=== PATIENT | male | born 1995 | race Caucasian/White ===

== ENCOUNTER → 2024-10-27 | Outpatient (CLI) | payer BC, SELFPAY ==
--- NOTE | 2024-10-27 13:00 | XR_ITS ---
Examination: Retroperitoneal ultrasound, complete Technique: Multiple high resolution grayscale images of the retroperitoneum obtained, including kidneys and bladder. Exam date and time:October 27, 2024 1328 hours INDICATIONS: History kidney stones on outside ultrasound examination one year ago. FINDINGS: Right kidney 11.9 cm cortex 2.1 cm 7 mm midpole calculus Left kidney 12.4 cm cortex 2.0 cm No renal calculi No bladder mass or bladder calculi Bladder prevoid volume 697 cc postvoid volume 145 cc No prostatomegaly IMPRESSION: 7 x 7 mm nonobstructing mid pole right renal calculus
== END | disposition home or self-care (01) ==
PROVIDERS: PCP Family Medicine; Referring Provider Family Medicine; Visit Provider Family Medicine
DX: N20.0 Calculus of kidney (principal)
CPT/HCPCS: 76770

== ENCOUNTER 2025-07-21 18:26 | Emergency (ER) | payer BC, SELFPAY ==
--- NOTE | 2025-07-21 18:39 | XR_ITS ---
Examination: CT abdomen and pelvis without contrast. Coronal 3-D reconstructions. Sagittal 2-D reconstructions. Date and time of exam: July 21, 2025, 0658 hours INDICATIONS: Onset right flank pain today COMPARISON: November 23, 2013 CTDI: vol (mGy): 8.22 DLP: (mGycm): 500 Technique: Axial images of the abdomen have been obtained, 3 mm slice thickness Intravenous contrast material has not been administered. Low dose protocols were performed. One or more of the following dose reduction techniques were used; automated exposure control, adjustment of the mA and/or KV according to patient size, use of iterative reconstruction technique. Findings: No focal liver or splenic lesion No gallstones No pancreatic or adrenal mass 2 mm right renal calculus 1 mm right renal calculus Mild right hydronephrosis secondary to 2.4 mm proximal right ureteral calculus Aorta normal size No bowel obstruction Normal seminal vesicles No prostatomegaly Contracted urinary bladder Normal appendix IMPRESSION: Mild right hydronephrosis secondary to 2.5 mm proximal right ureteral calculus
[2025-07-21 18:46] VITALS: BP 154/94; PULSE 84; RESP 24; TEMP 36.5; O2SAT 96
[2025-07-21 19:20] VITALS: BP 129/82; PULSE 93; RESP 20; TEMP 36; O2SAT 96
[2025-07-21] MEDS: ONDANSETRON INJ 2 MG/ML INJ 2 ML 4 MG IVP (19:23)
[2025-07-21] MEDS: MORPHINE SULF INJ 4 MG/ML VIAL IV (19:24)
[2025-07-21] MEDS: SODIUM CHLORIDE 0.9% 1000 ML 1,000 ML 999 ML IV (19:24)
[2025-07-21] MEDS: KETOROLAC INJ 30 MG/ML VIAL IVP (19:24)
[2025-07-21 19:32] LABS: Basophils # (Auto) 0.0 Thou/mm3 (0.0-0.2); Basophils % (Auto) 0 % (0-2.5); Eosinophils # (Auto) 0.0 Thou/mm3 (0.0-0.5); Eosinophils % (Auto) 0 % (0-10); Hematocrit 43.2 % (41.0-53.0); Hemoglobin 14.4 g/dL (13.5-16.0); Immature Granulocytes Auto 0.03 Thou/mm3 (0.00-0.00); Lymphocytes # (Auto) 1.0 Thou/mm3 (1.0-4.8); Lymphocytes % (Auto) 10 % (10-50); Mean Corpuscular HGB Conc 33.3 g/dl (31.0-37.0); Mean Corpuscular Hemoglobin 26.6 pg (25.0-35.0); Mean Corpuscular Volume 80 fL (80-100); Monocytes # (Auto) 0.6 Thou/mm3 (0.0-0.8); Monocytes % (Auto) 5 % (0-12); Neutrophils # (Auto) 8.9 Thou/mm3 (1.8-7.7); Neutrophils % (Auto) 84 % (37-80); Nucleated Red Blood Cell # 0.00 Thou/mm3 (0.00-0.00); Nucleated Red Blood Cell % 0 /100 WBC (0); Platelet Count 241 Thou/mm3 (140-440); RDW Standard Deviation 36.8 fL (35.1-43.9); Red Blood Count 5.41 Miln/mm3 (4.50-5.90); White Blood Count 10.5 Thou/mm3 (3.8-10.6)
[2025-07-21 19:34] VITALS: BMI 26.4
[2025-07-21 19:52] LABS: Alanine Aminotransferase 37 U/L (10-49); Albumin, Serum 4.7 gm/dL (3.5-5.0); Albumin/Globulin Ratio 1.6 (1.2-2.2); Alkaline Phosphatase 78 U/L (46-116); Anion Gap 11 (7-16); Aspartate Amino Transferase 31 U/L (0-34); BUN/Creatinine Ratio 14 Ratio (12-20); Bilirubin,Total 0.6 mg/dL (0.3-1.2); Blood Urea Nitrogen 15 mg/dL (9-23); Calcium 9.8 mg/dL (8.3-10.6); Calcium (Corrected) 9.8 mg/dL (8.5-10.1); Carbon Dioxide 26.3 mMol/L (20.0-31.0); Chloride 105 mMol/L (98-107); Creatinine (Component) 1.1 mg/dL (0.6-1.3); Estimated Creatinine Clearance 102.7 mL/min (>60); Globulin 3.0 gm/dL (2.3-3.5); Glucose 128 mg/dL (74-106); Lipase 24 U/L (12-53); Osmolality,Calculated 285 (275-295); Potassium 3.9 mMol/L (3.4-5.1); Sodium 142 mMol/L (136-145); Total Protein 7.7 gm/dL (5.7-8.2); eGFR > 60 See Note
[2025-07-21] MEDS: TAMSULOSIN HCL 0.4 MG CAPSULE PO (19:59)
[2025-07-21 20:34] LABS: Collection Type, Urine Clean Catch
--- NOTE | 2025-07-21 20:46 | PD.EDMALE ---
ED Male Genitalurinary RME/HPI General Chief complaint: Back Pain/Injury Stated complaint: R) FLANK PAIN 05/07 Time Seen by Provider: 07/21/25 18:40 Arrival date/time: 07/21/25 18:26 This is a case of 30-year-old male with with history of kidney stone came in in the emergency room due to right flank pain for 3 days radiating to the right side of the abdomen with nausea vomiting worsening of the symptoms this patient decided to sought consult here in the emergency room patient denies any fever chills denies any urinary symptoms Limitations: no limitations Related Data Previous Rx's ?Medication ?Instructions ?Recorded hydrocodone 5 mg-acetaminophen 325 1 tab PO Q6H PRN pain #16 tabs 07/21/25 mg tablet ondansetron 4 mg disintegrating 4 mg PO Q8H #20 tabs 07/21/25 tablet tamsulosin 0.4 mg capsule 0.4 mg PO QDAY #10 caps 07/21/25 Allergies Allergy/AdvReac Type Severity Reaction Status Date / Time No Known Allergies Allergy Verified 07/21/25 18:28 Review of Systems Review of Systems Systems Reviewed: All systems reviewed, normal except as documented Past Medical History Past Medical History CARDIAC: Negative Congestive Heart Failure RESPIRATORY: Negative Chronic Obstructive Pulmonary Disease (COPD) GENITOURINARY: Positive Genitourinary Disorders and Kidney Stones; Negative Renal Disease ENDOCRINE: Negative Diabetes Mellitus Type 1 or Diabetes Mellitus Type 2 PSYCHO/SOCIAL: Positive Depression and Anxiety Social History SMOKING STATUS: Never smoker ED Exam General Limitations: Present no limitations General appearance: Present alert, in no apparent distress and other (Patient is awake alert oriented not in distress nontoxic looking well-hydrated well-nourished) Head Head exam: Present atraumatic, normocephalic and normal inspection Eye Eye exam: Present normal appearance, PERRL and EOMI ENT ENT exam: Present normal exam, normal oropharynx and mucous membranes moist Neck Neck exam: Present normal inspection, full ROM and trachea midline; Absent tenderness, meningismus, lymphadenopathy or thyromegaly Chest Chest inspection: Present normal inspection and symmetric chest wall rise; Absent tenderness Respiratory Respiratory exam: Present normal lung sounds bilaterally; Absent respiratory distress, wheezes, stridor or prolonged expiratory phase Cardiovascular Cardiovascular exam: Present regular rate, normal rhythm and normal heart sounds; Absent bradycardia, tachycardia, irregular rhythm, systolic murmur or diastolic murmur Abdominal Exam Abdominal exam: Present soft, tenderness (Mild tenderness on the right flank and right side of the abdomen), normal bowel sounds and other (No CVA tenderness bladder is not distended not tender); Absent distention, guarding, rebound, rigidity, diminished bowel sounds, hyperactive bowel sounds, hypoactive bowel sounds, organomegaly, psoas sign, obturator sign, Robledo's sign, Rovsing's sign or tenderness at McBurney's Point Extremities Exam Extremities exam: Present normal inspection and full ROM Back Exam Back exam: Present normal inspection and full ROM; Absent tenderness, CVA tenderness (R), CVA tenderness (L), muscle spasm, paraspinal tenderness, vertebral tenderness, rashes, sciatic notch tenderness (R), straight leg raise (R) or straight leg raise (L) Neurological Exam Neurological exam: Present alert, oriented X3, CN II-XII intact, normal gait and reflexes normal; Absent motor sensory deficit Psychiatric Psychiatric exam: Present normal affect and normal mood Skin Skin exam: Present warm, dry, intact, normal color and other (Excellent skin turgor excellent skin turgor) Course Quality Measures none Orders Category Date Time Status Saline [Insert IV] NOW Care 07/21/25 18:37 Active Straight [In and Out Catheter] X1 Care 07/21/25 18:[address] abdomen pelvis wo con Stat Exams 07/21/25 18:39 Completed CBC Stat Lab 07/21/25 19:22 Completed Comprehensive Metabolic Panel Stat Lab 07/21/25 19:22 Completed Lipase Stat Lab 07/21/25 19:22 Completed Urinalysis Stat Lab 07/21/25 20:30 Completed HYDROmorphone INJ [Dilaudid Inj] Med 07/21/25 20:43 Discontinued 1 mg IVP X1 ONE Ketorolac Inj [Toradol Inj] Med 07/21/25 18:37 Discontinued 30 mg IVP X1 ONE Morphine* Inj Med 07/21/25 18:37 Discontinued 4 mg IV X1 ONE Ondansetron Inj [Zofran Inj] Med 07/21/25 18:37 Discontinued 4 mg IVP X1 ONE Sodium Chloride 0.9% 1000 ml [Ns] 1,000 ml Med 07/21/25 18:37 Discontinued IV 999 mls/hr Tamsulosin HCl [Flomax] Med 07/21/25 19:51 Discontinued 0.4 mg PO X1 ONE Vital Signs Vital signs: Vital Signs Temperature 97.7 F 07/21/25 18:46 Pulse Rate 84 07/21/25 18:46 Respiratory Rate 24 H 07/21/25 18:46 Blood Pressure 154/94 H 07/21/25 18:46 Pulse Oximetry (%) 96 07/21/25 18:46 Oxygen Delivery Method Room Air 07/21/25 18:46 Oxygen saturation is 96% on room air Urogenital - Male MDM Narrative MDM Narrative:: This is a case of 30-year-old male with with history of kidney stone came in in the emergency room due to right flank pain for 3 days radiating to the right side of the abdomen with nausea vomiting worsening of the symptoms this patient decided to sought consult here in the emergency room patient denies any fever chills denies any urinary symptoms patient is awake alert oriented not in distress nontoxic looking well-hydrated well-nourished vital signs stable BP stable not tachycardic not tachypneic afebrile and nonhypoxic oxygen saturation is 96% in room air lungs sound is clear no crackles no rales no retraction no stridor heart normal rate regular rhythm no murmur abdominal exam is benign nonsurgical no guarding no rebound no rigidity with mild tenderness on the right flank and the right side of the abdomen but no CVA tenderness no bladder distention no tenderness negative psoas negative straight or negative Rovsing's negative McBurney's negative Robledo sign negative CVA tenderness blood test showed no leukocytosis no anemia kidney and liver function is normal no electrolyte lipase is normal CT scan Mild right hydronephrosis secondary to 2.5 mm proximal right ureteral calculus patient was given a bolus of normal saline morphine IV Toradol IV and Zofran patient pain improved but after 1 hour patient pain recurred thus I gave Dilaudid 1 mg IV push after 1 hour patient was reassessed patient improved and resolved abdominal exam is still benign nonsurgical no guarding no rebound no rigidity no tenderness at the time of reassessment patient was also given Flomax for kidney stone and no recurrence of vomiting at this point patient will be discharged home in stable condition urinalysis is also normal patient will follow-up with PCP for reevaluation and to be referred to urologist for further evaluation and treatment of ureteral stone for any worsening symptoms or any emergent concern return precaution in the ER is advised Patient was discharged with comfortable condition walking with stable gait. Patient verbalized no further complains explained diagnosis and answered patient question. Patient is comfortable with the proposed management plan including the need to follow up with his/her primary care physician and any specialist if applicable Discussed patient for any urgent condition or worsening sx, He/She needed to go to emergency room immediately or call 911. Patient acknowledge the responsibility to follow up as instructed and to monitor her/his symptoms. For any persistence of the symptoms for more than 3-5 days return precaution advised. Discussed the result of the test and was given printed discharge instruction Patient data External records reviewed:: [facility] previous records Clinical information provided by:: patient Social determinants that could affect healthcare access:: none Patient has the following chronic illnesses:: None How is presenting disease/condition affected by chronic disease/condition?: no chronic disease Evaluation data The following diagnostics were reviewed and interpreted by me:: lab results and radiology exam(s) Lab and/or radiology exams considered but not ordered:: Reviewed Interpretation Summary: Reviewed Medications / Prescriptions Medications or Prescriptions considered but not ordered:: Given Medication administrations:: Medication Administration History Discontinued Medications Hydromorphone HCl (Hydromorphone Inj 2 Mg/Ml Vial) 1 mg IVP X1 ONE Stop: 07/21/25 20:44 Last Admin: 07/21/25 20:54 Dose: 1 mg Documented By: CCT Sodium Chloride (Ns) 1,000 mls @ 999 mls/hr IV .Q1H1M ONE Stop: 07/21/25 19:37 Last Infusion: 07/21/25 20:09 Dose: Infused Documented By: Admin: 07/21/25 19:24 Dose: 999 mls/hr Documented By: CCT Ketorolac Tromethamine (Ketorolac Inj 30 Mg/Ml Vial) 30 mg IVP X1 ONE Stop: 07/21/25 18:38 Last Admin: 07/21/25 19:24 Dose: 30 mg Documented By: CCT Morphine Sulfate (Morphine Sulf Inj 4 Mg/Ml Vial) 4 mg IV X1 ONE Stop: 07/21/25 18:38 Last Admin: 07/21/25 19:24 Dose: 4 mg Documented By: CCT Ondansetron HCl (Ondansetron Inj 2 Mg/Ml Inj 2 Ml) 4 mg IVP X1 ONE; Protocol Stop: 07/21/25 18:38 Last Admin: 07/21/25 19:23 Dose: 4 mg Documented By: CCT Tamsulosin HCl (Tamsulosin Hcl 0.4 Mg Capsule) 0.4 mg PO X1 ONE Stop: 07/21/25 19:52 Last Admin: 07/21/25 19:59 Dose: 0.4 mg Documented By: CCT Given Consultations Consultation(s) initiated? (list below): No Diagnosis Urogenital Male Differential Diagnosis: urinary tract infection and other (Pyelonephritis nephrolithiasis ureteral stone stone) Most likely diagnosis given after review of the tests above:: Ureteral stone with hydronephrosis Admission Indicated Admission indicated?: not indicated Explain why admission is indicated or not indicated:: Not indicated Admission Request Was there a request for admission?: No Disposition Plan Disposition Plan: Discharge Discharge Attestation Discharge Attestation: The patient and all family members were given an opportunity to ask questions and understood the discharge instructions. Discharge instructions specifically effects, indications for sooner follow up or return to the emergency department, and the expected course of current diagnosis. Patient condition: Stable Discharge Plan Plan Patient Disposition: HOME (Self Care) Patient condition on transfer: Stable Prescriptions/Referrals Prescriptions/Med Rec: New hydrocodone-acetaminophen 5-325 mg tablet 1 tab PO Q6H MDD max 4 tabs per day PRN (Reason: pain) Qty: 16 0RF tamsulosin 0.4 mg capsule 0.4 mg PO QDAY Qty: 10 0RF ondansetron 4 mg tablet,disintegrating 4 mg PO Q8H Qty: 20 0RF Referrals: No Primary/Family,Physician [Primary Care Provider] - In 1 week Problem List Clinical Impression: Ureteral stone, Hydronephrosis, Flank pain Patient/Caregiver Discharge Instructions Education Materials: Kidney Stones Your Evaluation, Understanding Hydronephrosis Additional Instructions: It is very important to see a urologist for further evaluation and treatment of ureteral stone and hydronephrosis follow-up with your primary care physician in 2 days for reevaluation and to be referred to urologist for further evaluation and treatment of ureteral stone and hydronephrosis worsening symptoms or any emergent concerns such as unable to urinate hematuria painful urination fever chills return to the emergency room immediately or call 911 take your medication as directed increase water intake keep hydrated Pedialyte Gatorade for hydration is advised Print Language: Slovenian Stand Alone Forms: [employer] Info., Patient Portal Info Letter PA/GLASSWARE MAKER DEMONSTRATOR Supervising Physician PA/GLASSWARE MAKER DEMONSTRATOR Supervising Physician: Dr. Gaston
[2025-07-21 20:54] LABS: Bilirubin,Urine Negative (Negative); Blood,Urine 3+ (Negative); Clarity,Urine Turbid (Clear/Hazy); Color,Urine Yellow (Lt Yel-Yel); Glucose, Urine Negative (Negative); Hyaline Casts,Urine < 1 /hpf (0-1); Ketones,Urine Trace (Negative); Leukocyte Esterase,Urine Negative (Negative); Nitrite,Urine Negative (Negative); PH,Urine 6.0 (5.0-7.0); Protein,Urine 1+ (Neg - Trace); RBC,Urine 368 /hpf (0-3); Specific Gravity,Urine 1.029 (1.001-1.035); Squamous Epithelial Cell,Urine 2 /hpf (0-5); Urobilinogen,Urine Negative mg/dL (0.0-1.0); WBC,Urine 1 /hpf (0-5)
[2025-07-21] MEDS: HYDROmorphone INJ 2 MG/ML VIAL 1 MG IVP (20:54)
[2025-07-21 21:20] VITALS: BP 127/82; PULSE 96; RESP 18; TEMP 36.8; O2SAT 96
== END 2025-07-21 21:20 | disposition home or self-care (01) ==
PROVIDERS: Nurse Practitioner Family; Emergency Provider Family Medicine
DX: N13.2 Hydronephrosis with renal and ureteral calculous obstruction (principal)
CPT/HCPCS: 36415; 74176; 80053; 81001; 83690; 85025; 96361; 96374; 96375; 99284; J1171; J1885; J2270; J2405; J7030; A9270